=== PATIENT | male | born 1965 | race Caucasian/White ===

== ENCOUNTER 2022-02-22 07:55 | Emergency (ER) | payer BC | END 2022-02-22 09:00 | disposition home or self-care (01) | LOC: JD.ED 07:55 | DX: J01.01 Acute recurrent maxillary sinusitis (principal); E78.00 Pure hypercholesterolemia, unspecified; I10 Essential (primary) hypertension; Z79.899 Other long term (current) drug therapy | CPT/HCPCS: 99283 ==

== ENCOUNTER 2023-07-25 06:50 | Day surgery (SDC) | payer BC ==
[~2023-07-25 06:50] MED LIST: Lactated Ringers 1,000 ML IV SCH; Sodium Chloride 0.9% 10 ML Syringe FLUSH PRN; Sodium Chloride 0.9% 10 ML Syringe FLUSH SCH
[2023-07-25] MEDS ORDERED: Propofol 200 MG/20 ML SDV ONE (07:17)
[2023-07-25] MEDS ORDERED: fentaNYL 100 MCG/2 ML SDV ONE (07:17)
[2023-07-25] MEDS ORDERED: Midazolam 1 MG/ML 2 ML SDV ONE (07:17)
[2023-07-25] MEDS ORDERED: Lactated Ringers 1,000 ML IV ONE (08:00)
== END 2023-07-25 09:05 | disposition home or self-care (01) ==
LOC: JD.SDS 06:50
PROVIDERS: ATTEND Family Medicine
DX: Z12.11 Encounter for screening for malignant neoplasm of colon (principal); K63.5 Polyp of colon; K57.30 Diverticulosis of large intestine without perforation or abscess without bleeding; G47.33 Obstructive sleep apnea (adult) (pediatric); I10 Essential (primary) hypertension; E78.00 Pure hypercholesterolemia, unspecified; F41.1 Generalized anxiety disorder; G47.00 Insomnia, unspecified; E78.2 Mixed hyperlipidemia; Z79.899 Other long term (current) drug therapy
CPT/HCPCS: 45380; J2250; J2704; J3010; J7120; 00811

== ENCOUNTER 2024-05-03 11:51 | Emergency (ER) | payer BC ==
[2024-05-03] MEDS: Sodium Chloride 0.9% 10 ML Syringe FLUSH PRN (12:57)
[2024-05-03] MEDS: Lactated Ringers 1,000 ML IV ONE (12:58)
[2024-05-03] MEDS: Ondansetron 4 MG/2 ML SDV IVPUSH ONE (13:00)
[2024-05-03 13:21] LABS: BASOPHILS ABSOLUTE AUTO 0.1 K/mm3 (0.0-0.2); BASOPHILS PERCENT AUTO 0.6 % (0.0-1.0); EOSINOPHILS ABSOLUTE AUTO 0.1 K/mm3 (0.0-0.4); EOSINOPHILS PERCENT AUTO 0.7 % (0.0-6.0); HEMATOCRIT 48.9 % (42.0-52.0); HEMOGLOBIN 16.9 gm/dl (14.0-18.0); IMMATURE GRAN ABSOLUTE AUTO 0.02 K/mm3 (0.00-0.05); IMMATURE GRAN PERCENT AUTO 0.2 % (0.0-0.4); LYMPHOCYTES ABSOLUTE AUTO 2.7 K/mm3 (1.0-4.8); LYMPHOCYTES PERCENT AUTO 29.2 % (24.0-44.0); MEAN CORPUSCULAR HEMOGLOBIN 30.1 pg (28.0-32.0); MEAN CORPUSCULAR HGB CONC 34.6 g/dl (32.0-36.0); MEAN PLATELET VOLUME 11.6 fl (9.4-12.4); MONOCYTES ABSOLUTE AUTO 0.8 K/mm3 (0.0-0.8); MONOCYTES PERCENT AUTO 8.7 % (0.0-8.0); NEUTROPHILS ABSOLUTE AUTO 5.7 K/mm3 (1.8-7.7); NEUTROPHILS PERCENT AUTO 60.6 % (41.0-71.0); PLATELET COUNT,PLT 228 K/mm3 (150-400); RED BLOOD CELL COUNT 5.62 M/mm3 (4.52-5.90); WHITE BLOOD CELL COUNT,WBC 9.36 K/mm3 (3.9-11.3)
[2024-05-03 13:22] LABS: APPEARANCE,URINE CLEAR (Clear); BILIRUBIN,URINE NEGATIVE (Negative); COLOR,URINE YELLOW (Yellow); GLUCOSE,URINE NEGATIVE (Negative); KETONES,URINE NEGATIVE (Negative); LEUKOCYTE ESTERASE,URINE NEGATIVE (Negative); NITRITE,URINE NEGATIVE (Negative); OCCULT BLOOD,URINE NEGATIVE (Negative); PROTEIN,URINE NEGATIVE (Negative)
[2024-05-03 13:50] LABS: ALBUMIN 3.9 g/dl (3.4-5.0); ANION GAP 14.8 (5-15); BILIRUBIN TOTAL 1.6 mg/dL (0.2-1.0); BUN/CREATININE RATIO 12.3 (14-18); CALCIUM 9.4 mg/dL (8.5-10.1); CREATININE 1.3 mg/dL (0.7-1.3); EST CRCL DRUG DOSING (CG) 70.26 mL/min; POTASSIUM,K 3.8 mEq/L (3.5-5.1); PROTEIN TOTAL,TP 7.8 g/dl (6.4-8.2)
== END 2024-05-03 14:36 | disposition home or self-care (01) ==
LOC: JD.ED 11:51
DX: T67.5XXA Heat exhaustion, unspecified, initial encounter (principal); I10 Essential (primary) hypertension; E78.00 Pure hypercholesterolemia, unspecified; Z79.899 Other long term (current) drug therapy
CPT/HCPCS: 36415; 80053; 81003; 85025; 93005; 96361; 96374; 99284; J2405; J3490; J7120